=== PATIENT | female | born 1980 | race Caucasian/White ===

== ENCOUNTER 2021-01-23 16:34 | Emergency (ER) | payer OTHER, SELFPAY ==
[2021-01-23 17:25] VITALS: BP 133/80; PULSE 64; RESP 18; TEMP 36.5; O2SAT 99
[2021-01-23] MEDS: SODIUM CHLORIDE 0.9% IV 1,000 ML 999 ML IV CONT (17:56)
[2021-01-23 18:04] LABS: Pregnancy On Board Control Positive; Urine Pregnancy Test Negative
[2021-01-23 18:09] LABS: Ethanol 52 mg/dL (0-6)
[2021-01-23 18:17] LABS: Amphetamine Screen Urine Negative (Negative); Barbiturate Screen Urine Negative (Negative); Benzodiazepines Screen Urine Negative (Negative); Cannabinoid Screen Urine Positive (Negative); Cocaine Screen Urine Negative (Negative); Methadone Screen Urine Negative (Negative); Opiate Screen Urine Negative (Negative); Phencyclidine Screen Urine Negative (Negative)
[2021-01-23] MEDS: ONDANSETRON INJ 4 MG/2 ML VIAL IV PUSH (18:17)
[2021-01-23] MEDS: KETOROLAC 30 MG/ML VIAL (*BKC) IV PUSH (18:17)
[2021-01-23 18:21] VITALS: BP 129/79; PULSE 72; RESP 18; TEMP 37.1; O2SAT 99
--- NOTE | 2021-01-23 18:36 | ED.NAVMDI ---
HPI - Nausea/Vomiting/Diarrhea General Chief complaint: Nausea/Vomiting/Diarrhea Stated complaint: can not keep fluids or food down Source: patient Mode of arrival: ambulatory Limitations: no limitations History of Present Illness HPI Narrative: This is a 40-year-old female that presents after she had an alcohol binge the night before with some nausea vomiting currently having dry heaves over with a headache with no fever chills no shortness of breath no abdominal pain no dysuria no flank pain. MD elicited complaint: nausea and vomiting Onset (ago): hour(s) Description of vomiting: watery Related Data Home Medications Medication Instructions Recorded Confirmed bupropion HCl See Rx Instructions .ROUTE .COMPLEX 03/16/19 01/23/21 escitalopram oxalate [Lexapro] See Rx Instructions .ROUTE .COMPLEX 03/16/19 01/23/21 Allergies Allergy/AdvReac Type Severity Reaction Status Date / Time No Known Allergies Allergy Verified 01/23/21 17:32 Review of Systems Review of Systems: All systems reviewed & are unremarkable except as noted in HPI and below PMFSH Past Medical History Medical History Depression Family History Family History Mother Hypertension Family history of cardiovascular disease Father Family history of alcoholism Family history of liver disease Family history of emphysema Grandparent Family history of lung cancer Social History Social History Smoking status: Former smoker Smoking end date: 03/20/16 Gender identity (if verbalized by the patient): Female Exam Const: General: no acute distress and alert Orientation/consciousness: patient oriented x3 HENMT: Head: normal to inspection Eyes: Pupils: Equal, round and reactive pupils present EOM: EOMs intact bilaterally Neck: Neck: normal visual inspection Chest: Chest palpation & inspection: normal inspection of the chest Resp: Effort & Inspection: normal respiratory effort Auscultation: clear to auscultation bilaterally Cardio: Rate: regular rate Rhythm: regular rhythm GI: GI Palp: Yes Soft to palpation Percussion: Yes normal to percussion : General: Yes no CVA tenderness Urinary Catheter: Urinary Catheter: patent and draining and urine clear Back/Spine/Pelvis: Back: no CVA tenderness Skin: General skin exam: normal color Rashes: no rashes Extrem: General: normal to inspection and no pedal edema Psych: Mental Status: mental status grossly normal Affect: normal affect Attitude: cooperative Course Course Emergency Course: patient was given Toradol /AH Zofran and IV fluids has improved, results reviewed with patient. Vital Signs Vital signs: Vital Signs Temperature 36.5 C 01/23/21 17:25 Pulse Rate 64 01/23/21 17:25 Respiratory Rate 18 01/23/21 17:25 Blood Pressure 133/80 01/23/21 17:25 Pulse Oximetry 99 01/23/21 17:25 Temperature 37.1 C 01/23/21 18:21 Pulse Rate 72 01/23/21 18:21 Respiratory Rate 18 01/23/21 18:21 Blood Pressure 129/79 01/23/21 18:21 Pulse Oximetry 99 01/23/21 18:21 MDM - Nausea/Vomiting/Diarrhea Lab Data Labs: Lab Results 01/23/21 01/23/21 01/23/21 Range/Units 17:51 17:51 17:51 Urine Test Negative Urine Opiates Screen Negative (Negative) Urine Methadone Screen Negative (Negative) Ur Barbiturates Screen Negative (Negative) Ur Phencyclidine Scrn Negative (Negative) Ur Amphetamine Screen Negative (Negative) U Benzodiazepines Scrn Negative (Negative) Urine Cocaine Screen Negative (Negative) U Cannabinoids Screen Positive A (Negative) Ethyl Alcohol 52 H (0-6) mg/dL Critical Care Time Critical Care Time Critical Care Time: No Discharge Plan Discharge Clinical Impression: Acute dehydration Nausea & vom
== END 2021-01-23 19:03 | disposition home or self-care (01) ==
PROVIDERS: Emergency Provider Emergency Medicine
DX: E86.0 Dehydration (principal); R11.2 Nausea with vomiting, unspecified
CPT/HCPCS: 36415; 80307; 81025; 96361; 96374; 96375; 99283; 99284; J1885; J2405; J7030

== ENCOUNTER 2021-09-08 21:01 | Emergency (ER) | payer OTHER, SELFPAY ==
--- NOTE | 2021-09-08 21:29 | ED.NAVMDI ---
HPI - Nausea/Vomiting/Diarrhea General Chief complaint: Nausea/Vomiting/Diarrhea Stated complaint: trouble sleeping, diarrhea, nausea Time Seen by Provider: 09/08/21 21:29 Source: patient and RN notes reviewed Mode of arrival: ambulatory Limitations: no limitations History of Present Illness HPI Narrative: patient recently and [place] and was drinking large amounts of alcohol. Now having nausea vomiting diarrhea. Other family members who were with her also having same symptoms. She also has an increase in her anxiety because she drink a lot of alcohol on her anxiety medications. MD elicited complaint: nausea, vomiting and diarrhea Onset (ago): day(s) (2) Description of vomiting: food contents Description of diarrhea: watery Associated nausea: Yes Associated abdominal pain: No Exacerbating factors: eating Relieving factors: none Context: foreign travel Associated symptoms: denies other symptoms Related Data Home Medications Medication Instructions Recorded Confirmed escitalopram oxalate 10 mg tablet 20 mg DAILY 03/16/19 09/08/21 (Lexapro) BuSpar 10 mg BID 09/08/21 09/08/21 hydroxyzine HCl 25 mg tablet 1 tablet TID PRN Anxiety 09/08/21 09/08/21 metoprolol succinate 25 mg 1 tablet PO DAILY 09/08/21 09/08/21 tablet,extended release 24 hr Allergies Allergy/AdvReac Type Severity Reaction Status Date / Time No Known Allergies Allergy Verified 09/08/21 21:25 Review of Systems Review of Systems: also complains of a generalized anxiety that causes numbness in her entire body. She also states that once that resolves then she feels like she still has the numbness in her right lower extremity. She is walking normally. Does not recall any injury. All systems reviewed & are unremarkable except as noted in HPI and below PMFSH Past Medical History Medical History (Updated 09/09/21 @ 00:00 by Background Daemon) Depression Neck pain with history of cervical spinal surgery Surgical History Surgical History (Updated 09/08/21 @ 21:51 by Tristin Sellers MD) H/O shoulder surgery Family History Family History Mother Hypertension Family history of cardiovascular disease Father Family history of alcoholism Family history of liver disease Family history of emphysema Grandparent Family history of lung cancer Social History Social History (Updated 09/08/21 @ 22:18 by Tristin Sellers MD) Tobacco type: e-cigarettes/vaping Smoking end date: 03/20/16 Alcohol intake: current Gender identity (if verbalized by the patient): Female Exam Const: General: healthy appearing Nutritional Appearance: well nourished Orientation/consciousness: patient oriented x3 Other: Female nurse in room during examination. HENMT: Head: normal to inspection Ears: external ears normal General nose exam: Normal external nose present Face and sinus: normal facial exam Eyes: Conjunctivae: conjunctivae normal Pupils: Equal, round and reactive pupils present EOM: EOMs intact bilaterally Neck: Neck: normal visual inspection Resp: Effort & Inspection: normal respiratory effort Auscultation: clear to auscultation bilaterally Cardio: Rate: regular rate Rhythm: regular rhythm GI: GI Palp: Yes Soft to palpation, Yes Tenderness to palpation present (GI) ( Mild in the lower abdomen she has no abdominal pain without palpation) and No Rebound tenderness present Auscultation: normal bowel sounds Back/Spine/Pelvis: Cervical Spine: cervical ROM normal Thoracic/Lumbar Spine: thoraco-lumbar ROM normal Skin: General skin exam: normal color Rashes: no rashes Neuro: General: patient oriented x3, moves all extremities, no focal motor deficits and CN's II-XI intact bilaterally Speech: normal speech Gait exam (Neuro): Normal gait present Extrem: General: normal to inspection and no clubbing, cyanosis or edema Psych: Mental Status: mental status grossly normal Affect:
[2021-09-08 21:32] VITALS: BP 113/80; PULSE 64; RESP 18; TEMP 36.4; O2SAT 97
--- NOTE | 2021-09-08 21:44 | PC.NURSE ---
Present in room while ERP performed physical exam.
[2021-09-08 21:50] LABS: Basophils Absolute Auto 0.02 K/mm3 (0.00-0.10); Basophils Percent Auto 0.3 % (0.0-1.0); Eosinophils Absolute Auto 0.09 K/mm3 (0.02-0.50); Eosinophils Percent Auto 1.2 % (1.0-6.0); Hematocrit 36.4 % (35.0-49.0); Hemoglobin 12.4 g/dL (12.0-15.0); Immature Granulocyte Absolute 0.02 K/mm3 (0.00-0.00); Immature Granulocyte Percent A 0.3 % (0.0-0.0); Lymphocytes Absolute Auto 2.32 K/mm3 (1.10-4.50); Lymphocytes Percent Auto 31.2 % (18.0-42.0); Mean Corpuscular HGB Conc 34.1 g/dL (32.0-36.0); Mean Corpuscular Hemoglobin 30.4 pg (27.0-31.0); Mean Corpuscular Volume 89.2 fL (78.0-102.0); Mean Platelet Volume 9.7 fl (9.2-11.8); Monocytes Absolute Auto 0.68 K/mm3 (0.10-0.90); Monocytes Percent Auto 9.2 % (2.0-11.0); Neutrophils Absolute Auto 4.3 K/mm3 (1.7-7.2); Neutrophils Percent Auto 57.8 % (50.0-70.0); Platelet Count Result 230 K/mm3 (150-420); Red Blood Count 4.08 M/mm3 (4.20-5.40); Red Cell Distribution Width 13.2 % (11.6-14.4); White Blood Count 7.4 K/mm3 (4.8-10.8)
[2021-09-08 22:05] LABS: Alanine Aminotransferase 17 U/L (14-59); Albumin Level 3.7 g/dL (3.4-5.0); Alkaline Phosphatase 42 U/L (46-116); Anion Gap 6 mmol/L (8-16); Aspartate Amino Transferase 13 U/L (15-37); Bilirubin,Total 0.3 mg/dL (0.00-1.00); Blood Urea Nitrogen 15 mg/dL (7-18); Calcium 8.7 mg/dL (8.5-10.1); Carbon Dioxide 26 mmol/L (21-32); Chloride 105 mmol/L (98-108); Estimated CRCL calculation 91 ml/min; Estimated Glomerular Filt Rate > 60; Glucose 97 mg/dL (70-99); Osmolality Calculated 284 mOsm/kg (285-295); Potassium 3.6 mmol/L (3.5-5.1); Sodium 137 mmol/L (136-145); Total Protein 6.6 g/dL (6.4-8.2)
[2021-09-08] MEDS: traZODone HCL 50 MG TABLET PO (22:29)
[2021-09-08 22:32] VITALS: BP 125/84; PULSE 57; RESP 16; O2SAT 99
== END 2021-09-08 22:33 | disposition home or self-care (01) ==
PROVIDERS: Emergency Provider Emergency Medicine
DX: R19.7 Diarrhea, unspecified (principal); G47.00 Insomnia, unspecified
CPT/HCPCS: 36415; 80053; 85025; 99283; A9270

== ENCOUNTER 2021-09-12 09:58 | Emergency (ER) | payer OTHER, SELFPAY ==
--- NOTE | ~2021-09-12 | XR_ITS ---
EXAMINATION: XR chest 2V DATE: 09/12/2021 11:19 INDICATION: Chest pain TECHNIQUE: Frontal and lateral views of the chest are obtained COMPARISON: None available FINDINGS: The lungs are free of acute opacities. There is no pleural effusion or pneumothorax. The ca rdiomediastinal silhouette is normal. There is mild thoracic spondylosis. There are partially imaged changes of cervical fusion. IMPRESSION: 1. No acute cardiopulmonary abnormality. Reviewed, dictated and finalized at location A.
[2021-09-12 10:10] VITALS: PULSE 60
[2021-09-12 10:16] VITALS: BP 135/84; PULSE 83; RESP 20; TEMP 36.9; O2SAT 98
--- NOTE | 2021-09-12 10:26 | ED.ARRPALP ---
HPI - Arrhythmia/Palpitations General Chief Complaint: Arrhythmia/Palpitations Stated Complaint: chest pain and anxiety Time Seen by Provider: 09/12/21 10:25 Source: patient and RN notes reviewed Mode of arrival: ambulatory Limitations: no limitations History of Present Illness HPI narrative: patient was here 4 days ago for similar concerns. She had just returned from a trip in [place] where she did state that she had drink heavily. She was having difficulty with falling asleep and feeling like she was having chest pain electric shocks and palpitations. Workup was completed and no significant problems were found. She was having increased amount of diarrhea and I started her on Bactrim DS for possible traveler's diarrhea. She returns today because she says that her palpitations seem to be worse. She has which she feels like an electric shock in her chest and then it goes to her arms and to her head. She feels like she gets weak. She does not have any shortness of breath nausea or vomiting. She says sometimes things are pins and needles. She shows me how long list of vague complaints that she has written down on her phone. She now relates that family members have been diagnosed with multiple sclerosis since started out similar to her presentation. She goes to the [facility] in [place] where she lives. She was trying to get an appointment there as well. Today she said she had 4 episodes of these shocks and that her diarrhea continues. She is currently on metoprolol that she uses for history of some palpitations. But she feels like things are getting worse. She comes in today for a repeat evaluation. complaint: heart racing Onset (ago): day(s) (5) Duration: intermittent Severity: moderate Context: occurred during rest Associated symptoms: chest pain, anxiety and paresthesias Related Data Home Medications Medication Instructions Recorded Confirmed escitalopram oxalate 10 mg tablet 20 mg DAILY 03/16/19 09/12/21 (Lexapro) buspirone 10 mg tablet 10 mg PO BID 09/08/21 09/12/21 metoprolol succinate 25 mg 1 tablet PO DAILY 09/08/21 09/12/21 tablet,extended release 24 hr Allergies Allergy/AdvReac Type Severity Reaction Status Date / Time No Known Allergies Allergy Verified 09/12/21 10:45 Review of Systems Review of Systems: All systems reviewed & are unremarkable except as noted in HPI and below [facility] Past Medical History Medical History (Updated 09/12/21 @ 12:02 by Tristin Sellers MD) Depression Neck pain with history of cervical spinal surgery PFO (patent foramen ovale) Surgical History Surgical History (Updated 09/08/21 @ 21:51 by Tristin Sellers MD) H/O shoulder surgery Family History Family History Mother Hypertension Family history of cardiovascular disease Father Family history of alcoholism Family history of liver disease Family history of emphysema Grandparent Family history of lung cancer Social History Social History (Updated 09/08/21 @ 22:18 by Tristin Sellers MD) Tobacco type: e-cigarettes/vaping Smoking end date: 03/20/16 Alcohol intake: current Gender identity (if verbalized by the patient): Female Exam Const: General: healthy appearing, no acute distress and alert Nutritional Appearance: well nourished Orientation/consciousness: patient oriented x3 Limitations: no limitations Other: female nurse in room during examination. HENMT: Head: normal to inspection Ears: external ears normal General nose exam: Normal external nose present Face and sinus: normal facial exam Mouth: Yes moist mucous membranes Eyes: Conjunctivae: conjunctivae normal Pupils: Equal, round and reactive pupils present EOM: EOMs intact bilaterally Neck: Neck: normal visual inspection Resp: Effort & Inspection: normal respiratory effort Auscultation: clear to auscultation bilaterally Cardio: Rate: regular rate Rhythm: regular
[2021-09-12 10:27] VITALS: BP 125/54; PULSE 58; RESP 18; TEMP 36.9; O2SAT 97
--- NOTE | 2021-09-12 10:29 | ECG_ITS ---
Measurements Intervals [place] Rate: 61 P: 63 HI: 160 QRS: 73 QRSD: 89 T: 60 QT: 419 QTc: 424 Interpretive Statements SINUS RHYTHM NORMAL ECG NO PREVIOUS ECG AVAILABLE FOR COMPARISON Electronically Signed On 09-13-2021 15:42:05 CDT by Jacob Ying M.D.
[2021-09-12 10:53] LABS: Basophils Absolute Auto 0.03 K/mm3 (0.00-0.10); Basophils Percent Auto 0.5 % (0.0-1.0); Eosinophils Absolute Auto 0.03 K/mm3 (0.02-0.50); Eosinophils Percent Auto 0.5 % (1.0-6.0); Hematocrit 40.3 % (35.0-49.0); Hemoglobin 13.3 g/dL (12.0-15.0); Immature Granulocyte Absolute 0.02 K/mm3 (0.00-0.00); Immature Granulocyte Percent A 0.3 % (0.0-0.0); Lymphocytes Absolute Auto 1.61 K/mm3 (1.10-4.50); Lymphocytes Percent Auto 26.8 % (18.0-42.0); Mean Platelet Volume 9.9 fl (9.2-11.8); Monocytes Absolute Auto 0.46 K/mm3 (0.10-0.90); Monocytes Percent Auto 7.7 % (2.0-11.0); Neutrophils Absolute Auto 3.9 K/mm3 (1.7-7.2); Neutrophils Percent Auto 64.2 % (50.0-70.0); Platelet Count Result 254 K/mm3 (150-420); Red Blood Count 4.43 M/mm3 (4.20-5.40); Red Cell Distribution Width 13.4 % (11.6-14.4)
[2021-09-12 11:19] LABS: Alanine Aminotransferase 15 U/L (14-59); Albumin Level 3.8 g/dL (3.4-5.0); Alkaline Phosphatase 38 U/L (46-116); Anion Gap 7 mmol/L (8-16); Aspartate Amino Transferase < 10 U/L (15-37); Bilirubin,Total 0.4 mg/dL (0.00-1.00); Blood Urea Nitrogen 12 mg/dL (7-18); Calcium 8.5 mg/dL (8.5-10.1); Carbon Dioxide 25 mmol/L (21-32); Chloride 108 mmol/L (98-108); Estimated CRCL calculation 110 ml/min; Estimated Glomerular Filt Rate > 60; Glucose 110 mg/dL (70-99); Osmolality Calculated 290 mOsm/kg (285-295); Potassium 4.3 mmol/L (3.5-5.1); Sodium 140 mmol/L (136-145); Total Protein 6.8 g/dL (6.4-8.2); Troponin I 5.9 ng/L (0.00-60.4)
[2021-09-12 11:30] VITALS: BP 113/77; PULSE 68; RESP 20; O2SAT 98
[2021-09-12 12:16] VITALS: BP 107/70; PULSE 73; RESP 20; TEMP 36.7; O2SAT 99
== END 2021-09-12 12:20 | disposition home or self-care (01) ==
PROVIDERS: Emergency Provider Emergency Medicine
DX: R00.2 Palpitations (principal)
CPT/HCPCS: 36415; 71046; 80053; 83735; 84443; 84484; 85025; 93005; 99284

== ENCOUNTER 2021-09-16 16:36 | Emergency (ER) | payer OTHER, SELFPAY ==
[2021-09-16] VITALS (17 sets, daily range): BP systolic 104–122; BP diastolic 52–87; PULSE 52–89; RESP 10–21; TEMP 36.8; O2SAT 98–100
--- NOTE | ~2021-09-16 | XR_ITS ---
XR chest 2V DATE: 09/16/2021 17:53 INDICATION: Chest pain and palpitations for 3 days. Dizziness, lightheadedness. TECHNIQUE: PA and lateral views COMPARISON: 09/12/2021 PA and lateral chest FINDINGS: Normal heart size. No hilar or mediastinal enlargement. No pulmonary infiltrate or consolid ation, pleural effusion or pulmonary vascular congestion or pneumothorax. Status post lower anterior cervical spine surgical fusion. IMPRESSION: No active cardiopulmonary disease Reviewed, dictated and finalized at location B.
--- NOTE | 2021-09-16 16:38 | ECG_ITS ---
Measurements Intervals [place] Rate: 58 P: 61 PA: 155 QRS: 65 QRSD: 90 T: 54 QT: 424 QTc: 418 Interpretive Statements SINUS BRADYCARDIA COMPARED TO ECG 09/12/2021 10:42:57 SINUS BRADYCARDIA NOW PRESENT Electronically Signed On 09-16-2021 18:13:32 CDT by Rosetta Avila M.D.
[2021-09-16 17:05] LABS: Basophils Percent Auto 0.4 % (0.2-1.2); Eosinophils Absolute Auto 0.1 K/mm3 (0-0.3); Eosinophils Percent Auto 1.1 % (0-4.4); Hematocrit 40.8 % (37.0-47.0); Hemoglobin 13.4 g/dL (12.0-15.0); Immature Granulocyte Absolute 0.01 K/mm3 (0.00-0.031); Immature Granulocyte Percent A 0.1 % (0-0.5); Lymphocytes Absolute Auto 2.99 K/mm3 (0.9-3.2); Lymphocytes Percent Auto 39.3 % (18.3-44.2); Mean Corpuscular HGB Conc 32.8 g/dl (32-36); Mean Corpuscular Hemoglobin 29.7 pg (26-34); Mean Corpuscular Volume 90.5 fl (80-100); Mean Platelet Volume 9.6 fl (7.4-10.4); Monocytes Absolute Auto 0.6 K/mm3 (0.1-0.6); Monocytes Percent Auto 8.1 % (2.6-8.5); Neutrophils Absolute Auto 3.9 K/mm3 (1.3-6.7); Platelet Count Result 291 k/mm3 (150-375); Red Blood Count 4.51 M/mm3 (4.2-5.4); Red Cell Distribution Width 13.5 % (11.5-14.5); White Blood Count 7.6 K/mm3 (4.5-10.0)
[2021-09-16 17:12] LABS: Alanine Aminotransferase 13 U/L (6-35); Albumin Level 4.7 g/dL (3.5-5.1); Alkaline Phosphatase 46 U/L (38-126); Anion Gap 6 mmol/L (8-16); Aspartate Amino Transferase 22 U/L (14-36); Bilirubin,Total 0.4 mg/dL (0.2-1.3); Blood Urea Nitrogen 11 mg/dL (7-17); Calcium 9.2 mg/dL (8.4-10.2); Carbon Dioxide 26 mmol/L (22-30); Chloride 104 mmol/L (98-107); Estimated Glomerular Filt Rate > 60; Glucose 106 mg/dL (65-110); Lipase 52 U/L (23-300); Potassium 3.8 mmol/L (3.4-5.0); Sodium 136 mmol/L (137-145)
[2021-09-16 17:14] LABS: Prothrombin Time 12.7 Seconds (11.1-14.7)
[2021-09-16 17:15] LABS: Partial Thromboplastin Time 34.4 SECONDS (22.3-36.8)
[2021-09-16 17:24] LABS: Troponin I < 0.012 ng/mL (0.000-0.034)
[2021-09-16] MEDS: BELLADONNA ALK/PHENOB ELIX 10 ML, MAG HYDROX/ALUMINUM HYD/SIMETH 30 ML, LIDOCAINE HCL 2... PO (17:38)
[2021-09-16] MEDS: FAMOTIDINE 20 MG TABLET PO (17:38)
--- NOTE | 2021-09-16 18:03 | ED.CHESTPAIN ---
HPI - Chest Pain General Chief Complaint: Chest Pain Stated Complaint: Chest pain Time Seen by Provider: 09/16/21 16:53 Source: patient Mode of arrival: ambulatory History of Present Illness HPI narrative: This is a 40-year-old female with past medical history of anxiety and palpitations, who presents to the emergency department complaining of chest pain for the past 3 days. She describes the pain as squeezing, lasting 10 to 30 seconds, radiating to the bilateral arms and associated with intermittent nausea. She states she was evaluated for this pain 2 days ago and was discharged home with pain medication. She states she returned 10 days ago from a vacation to [place], where she states she drank heavily, but denies trauma, animal bites, or other travel members with similar symptoms. Related Data Home Medications Medication Instructions Recorded Confirmed escitalopram oxalate 10 mg tablet 20 mg DAILY 03/16/19 09/12/21 (Lexapro) buspirone 10 mg tablet 10 mg PO BID 09/08/21 09/12/21 metoprolol succinate 25 mg 1 tablet PO DAILY 09/08/21 09/12/21 tablet,extended release 24 hr Allergies Allergy/AdvReac Type Severity Reaction Status Date / Time No Known Allergies Allergy Verified 09/16/21 17:04 Review of Systems Review of Systems: CONSTITUTIONAL: Denies fever, chills, or sweats. EYES: Denies visual changes, redness, or discharge. ENT: Denies rhinorrhea, congestion, sore throat, or otalgia. CARDIOVASCULAR: +chest pain, palpitations, Denies edema. RESPIRATORY: Denies cough or dyspnea. GASTROINTESTINAL: Denies abdominal pain, nausea, vomiting, or diarrhea. GENITOURINARY: Denies dysuria or hematuria. SKIN: Denies rash or itching. MUSCULOSKELETAL: Denies back pain, joint pain, or myalgia. NEUROLOGIC: +headache, Denies numbness, dizziness, or weakness. PMFSH Past Medical History Medical History Depression Family hx of lung cancer Hx of abnormal cervical Pap smear Major depression Neck pain with history of cervical spinal surgery Other constipation Pelvic pain in female PFO (patent foramen ovale) Tobacco use Surgical History Surgical History H/O shoulder surgery Family History Family History Mother Hypertension Family history of cardiovascular disease Father Family history of alcoholism Family history of liver disease Family history of emphysema Grandparent Family history of lung cancer Social History Social History Tobacco type: e-cigarettes/vaping Smoking end date: 03/20/16 Alcohol intake: current Gender identity (if verbalized by the patient): Female Exam Narrative: GENERAL: Well-developed, well-nourished, and in no acute distress, appears anxious. HEAD: Normocephalic, atraumatic. EYES: PERRLA and EOMI. ENT: Nares clear, no rhinorrhea or epistaxis. Mucous membranes moist. Oropharynx without tonsillar hypertrophy exudate or other lesions. NECK: Supple. No adenopathy or masses. No carotid bruits or JVD CHEST: Clear to auscultation. No respiratory distress. No wheezes rales or rhonchi HEART: Regular rate and rhythm. No murmur heard. Normal peripheral pulses. ABDOMEN: Soft, nontender, nondistended, normal active bowel sounds. EXTREMITIES: Normal range of motion. No edema. SKIN: Warm, dry, no rash. NEURO: No focal deficits. Alert and oriented x3. PSYCH: Normal mood and affect. Course Course Emergency Course: 17:20 - Bedside ultrasound not concerning for pericardial effusion. Normal left ventricular function. No RV dilation noted. 20:39 - Sodium 136. Labs otherwise within normal limits. Troponins negative x2. Vital Signs Vital signs: Vital Signs Temperature 98.3 F 09/16/21 16:39 Pulse Rate 89 09/16/21 16:39 Respiratory Rate 13 09/16/21 16:39 Blood Pressure 119/87 09/16/21 16:39 Pulse Oximet
[2021-09-16] MEDS: ACETAMINOPHEN 500 MG TABLET 1000 MG PO (18:30)
[2021-09-16 19:55] LABS: Pregnancy On Board Control Positive; Urine Pregnancy Test Negative
[2021-09-16 20:08] LABS: Troponin I < 0.012 ng/mL (0.000-0.034)
== END 2021-09-16 20:43 | disposition home or self-care (01) ==
PROVIDERS: Emergency Medicine; Emergency Provider Preventive Medicine Aerospace Medicine
DX: R07.89 Other chest pain (principal); F32.9 Major depressive disorder, single episode, unspecified; Z87.891 Personal history of nicotine dependence; R00.1 Bradycardia, unspecified
CPT/HCPCS: 36415; 71046; 80053; 81025; 83690; 84484; 85025; 85610; 85730; 93005; 99284; A9270

== ENCOUNTER 2023-09-19 15:03 | Emergency (ER) | payer OTHER, SELFPAY ==
[2023-09-19] VITALS (22 sets, daily range): BP systolic 112–128; BP diastolic 65–85; PULSE 72–90; RESP 11–21; TEMP 36.9–37.1; O2SAT 98–100
--- NOTE | ~2023-09-19 | XR_ITS ---
EXAMINATION: XR chest 2V DATE: 09/19/2023 15:32 INDICATION: Chest pain TECHNIQUE: frontal and lateral views of the chest were obtained. COMPARISON: Chest radiograph dated 09/16/21 FINDINGS: The lungs are clear with no focal airspace opacities, pulmonary edema, pleural effusion or pneumothor ax. The cardiomediastinal silhouette is normal. Left anterior chest wall implantable media monitor. IMPRESSION: 1. No acute cardiopulmonary disease. Reviewed, dictated and finalized at location B.
--- NOTE | ~2023-09-19 | CT_ITS ---
EXAMINATION: CTA chest PE protocol DATE: 09/19/2023 16:20 INDICATION: elev dimer/cp TECHNIQUE: Computed tomography angiography (CTA) of the chest was performed with 100 mL Omnipaque-350 intravenous contrast timed to evaluate the pulmonary arteries. Coronal maximum intensity projection 3D-reconstructions were created by the technologist. The dose-length product (DLP) was 223.82 mGy-cm. Automated exposure control and iterative reconstruction technique were employed. COMPARISON: X-ray chest, same date. FINDINGS: Lung parenchyma and airways: Azygos lobe. Mild dependent atelectasis. Patent airways. Pleura: Unremarkable. Thoracic inlet, axillae and chest wall: Loop recorder, otherwise unremarkable. Thoracic aorta: No significant dilation. No dissection. Mediastinum: Normal. Heart and pericardium: Normal. Coronary artery calcifications: Absent. Upper abdomen: No significant finding. Bones: No acute osseous finding. Pulmonary arteries: Study quality: Suboptimal contrast bolus and mild motion, overall diagnostic. No pulmonary emboli detected. IMPRESSION: No CT evidence of acute pulmonary embolus. No acute process detected in the chest. Reviewed, dictated and finalized at location K.
--- NOTE | 2023-09-19 15:09 | ECG_ITS ---
Test Date: 2023-09-19 15:15:18 Measurements Intervals [place] Rate: 75 P: 0 AL: 146 QRS: -17 QRSD: 89 T: -8 QT: 390 QTc: 438 Interpretive Statements SINUS RHYTHM VOLTAGE CRITERIA FOR LVH MINIMAL Q WAVES- LAT/HIGH LAT LEADS BORDERLINE T WAVE ABNORMALITY- INFERIOR LEADS BORDERLINE ECG No previous ECG available for comparison Electronically Signed On 09-19-2023 16:46:42 CDT by Faustino Daniel D.O.
--- NOTE | 2023-09-19 15:15 | ED.CHESTPAIN ---
HPI - Chest Pain General Chief Complaint: Chest Pain Stated Complaint: chest pain, anxiety Time Seen by Provider: 09/19/23 15:07 Source: patient Mode of arrival: ambulatory Limitations: no limitations History of Present Illness HPI narrative: Patient is a 42-year-old female with central precordial chest pain for the past few hours. She just flew in town from [place]. She is here visiting family. She has history of anxiety. She does have history of PACs and PVCs. She has a device implanted for heart monitoring. She does have a ablation planned soon. No open-heart or stents for the heart. She does have some jaw pain. MD complaint: chest pain and chest discomfort Onset (ago): hour(s) (3) Timing of current episode: episodic Prior episodes: Yes Onset: during rest Pain location: substernal, left chest, right chest and epigastric Pain radiation: none Severity: moderate Pain scale (0-10): 5 Quality: tightness and sharp Relieving factors: other ( She got relief when she came to the ER and felt safe for cardiac monitoring) Exacerbating factors: nothing Treatment prior to arrival: none Risk Factors Coronary artery disease risk factors: none Thoracic aortic dissection risk factors: none Related Data On Oral Contraceptives: No Home Medications Medication Instructions Recorded Confirmed escitalopram oxalate 10 mg tablet 20 mg DAILY 03/16/19 09/19/23 (Lexapro) buspirone 10 mg tablet 10 mg PO BID 09/08/21 09/19/23 Allergies Allergy/AdvReac Type Severity Reaction Status Date / Time No Known Allergies Allergy Verified 09/19/23 15:10 Review of Systems Review of Systems: All systems reviewed & are unremarkable except as noted in HPI and below Constitutional: Constitutional: Reports no additional constitutional complaints Eyes: Eyes: Reports no additional eye complaints ENT: Reports system reviewed and no additional complaints, except as documented Cardiovascular: Cardiovascular: Reports no additional cardiovascular complaints Respiratory: Respiratory: Reports no additional respiratory complaints Gastrointestinal: Gastrointestinal: Reports no additional gastrointestinal complaints Genitourinary: Genitourinary: Reports no additional female genitourinary complaints Musculoskeletal: Musculoskeletal: Reports no additional musculoskeletal complaints Integumentary/Breasts: Skin/Breast: Reports system reviewed and no additional complaints, except as docu Neurologic: Reports system reviewed and no additional complaints, except as documented Psychiatric: Psychiatric: Reports no additional psychiatric complaints Endocrine: Endocrine: Reports no additional endocrine complaints Hematologic/Lymphatic: Hematologic/Lymphatic: Reports no additional hematologic/lymphatic complaints Allergic/Immunologic: Allergic/Immunologic: Reports no additional allergic/immunologic complaints PMFSH Past Medical History Medical History Depression Family hx of lung cancer Hx of abnormal cervical Pap smear Major depression Neck pain with history of cervical spinal surgery Other constipation Pelvic pain in female PFO (patent foramen ovale) Tobacco use Surgical History Surgical History H/O shoulder surgery Family History Family History Mother Hypertension Family history of cardiovascular disease Father Family history of alcoholism Family history of liver disease Family history of emphysema Grandparent Family history of lung cancer Social History Social History Tobacco type: e-cigarettes/vaping Smoking end date: 03/20/16 Alcohol intake: current Gender identity (if verbalized by the patient): Female Exam Const: General: healthy appearing Nutritional Appearance: well nourished Orientation/consciousness: patient oriented x3 Other: anxio
[2023-09-19 15:30] LABS: Basophils Absolute Auto 0.03 K/mm3 (0.00-0.10); Basophils Percent Auto 0.5 % (0.0-1.0); Eosinophils Absolute Auto 0.07 K/mm3 (0.02-0.50); Eosinophils Percent Auto 1.1 % (1.0-6.0); Hematocrit 36.1 % (35.0-49.0); Hemoglobin 12.5 g/dL (12.0-15.0); Immature Granulocyte Absolute 0.01 K/mm3 (0.00-0.00); Immature Granulocyte Percent A 0.2 % (0.0-0.0); Lymphocytes Absolute Auto 2.44 K/mm3 (1.10-4.50); Lymphocytes Percent Auto 38.9 % (18.0-42.0); Mean Corpuscular HGB Conc 34.6 g/dL (32-36); Mean Corpuscular Hemoglobin 30.3 pg (27.0-31.0); Mean Corpuscular Volume 87.6 fL (78.0-102.0); Mean Platelet Volume 9.3 fl (9.2-11.8); Monocytes Absolute Auto 0.46 K/mm3 (0.10-0.90); Monocytes Percent Auto 7.3 % (2.0-11.0); Neutrophils Absolute Auto 3.26 K/mm3 (1.70-7.20); Platelet Count Result 251 K/mm3 (150-420); Red Blood Count 4.12 M/mm3 (4.20-5.40); Red Cell Distribution Width 12.8 % (11.6-14.4); White Blood Count 6.3 K/mm3 (4.8-10.8)
[2023-09-19 15:41] LABS: Appearance Urine Clear (Clear); Bilirubin Urine Negative (Negative); Blood Urine Negative (Negative); Color Urine Yellow (Yellow); Glucose Urine UA Negative (Negative); Ketones Urine Trace (Negative); Leukocyte Esterase Ur Negative LEU/UL (Negative); Nitrate Urine Negative (Negative); Protein Urine Negative (Negative); Specific Grav Ur >= 1.030 (1.010-1.020); Urobilinogen Urine 0.2 mg/dL (0.2-1.0)
[2023-09-19 15:44] LABS: D Dimer 1.12 mg/L (0.19-0.50)
[2023-09-19 15:45] LABS: Add Urine Microscopic? YES; Bacteria Urine Trace /hpf; Pregnancy On Board Control Positive; RBC Urine None seen /hpf (0-2); Squamous Epithelial Cell Urine Few /hpf (Few); Urine Pregnancy Test Negative; WBC Urine None seen /hpf (0-3)
[2023-09-19 15:48] LABS: Amphetamine Screen Urine Negative (Negative); Barbiturate Screen Urine Negative (Negative); Benzodiazepines Screen Urine Negative (Negative); Cannabinoid Screen Urine Negative (Negative); Cocaine Screen Urine Negative (Negative); Methadone Screen Urine Negative (Negative); Opiate Screen Urine Negative (Negative); Phencyclidine Screen Urine Negative (Negative)
--- NOTE | 2023-09-19 15:48 | PC.NURSE ---
ERP at bedside discussing plan for further testing due to increased D.Dimer
[2023-09-19 15:53] LABS: Alanine Aminotransferase 22 U/L (14-59); Albumin Level 3.8 g/dL (3.4-5.0); Alkaline Phosphatase 34 U/L (46-116); Anion Gap 8 mmol/L (4-12); Aspartate Amino Transferase 13 U/L (15-37); Bilirubin,Total 0.4 mg/dL (0.00-1.00); Blood Urea Nitrogen 12 mg/dL (7-18); Calcium 8.5 mg/dL (8.5-10.1); Carbon Dioxide 26 mmol/L (21-32); Chloride 103 mmol/L (98-108); Estimated CRCL calculation 97 ml/min; Estimated Glomerular Filt Rate > 60; Glucose 133 mg/dL (70-99); NT Pro B Type Natriuretic Pept 30 pg/mL (0-125); Osmolality Calculated 285 mOsm/kg (285-295); Potassium 3.4 mmol/L (3.5-5.1); Sodium 137 mmol/L (136-145); Total Protein 6.8 g/dL (6.4-8.2)
[2023-09-19 15:54] LABS: Lipase 20 U/L (16-77); Troponin I 5.5 ng/L (0.00-60.4)
--- NOTE | 2023-09-19 15:59 | PC.NURSE ---
patient taken down to Ct
[2023-09-19] MEDS: POTASSIUM CHLORIDE 20 MEQ ER TABLET PO (16:20)
[2023-09-19 17:14] LABS: Troponin I 6.6 ng/L (0.00-60.4)
== END 2023-09-19 17:32 | disposition home or self-care (01) ==
PROVIDERS: Emergency Provider Emergency Medicine
DX: R07.89 Other chest pain (principal); F17.290 Nicotine dependence, other tobacco product, uncomplicated; Z79.899 Other long term (current) drug therapy
CPT/HCPCS: 36415; 71046; 71275; 80053; 80307; 81001; 81025; 83690; 83880; 84484; 85025; 85380; 93005; 99284; A9270; Q9967